=== PATIENT | female | born 1955 | race American Indian/Alaskan Native ===

== ENCOUNTER 2017-08-16 19:12 | Inpatient (IN) | payer MEDICARE, MEDICAID, OTHER ==
[2017-08-16 19:21] VITALS: BMI 33.6
[2017-08-16] MEDS ORDERED: Sodium Chloride 0.9% 1,000 ML IV SCH (19:45)
[2017-08-16] MEDS ORDERED: Morphine 4 mg/ml ISec IVP STA (19:45)
[2017-08-16] MEDS ORDERED: Iohexol 240 (50 ml) ONE (19:49)
[2017-08-16 20:42] LABS: BASO # 0.02 K/mm3 (0.0-2.0); BASO % 0.2 % (0.0-3.0); EOS # 0.2 (0.0-0.7); EOS % 2.2 % (1.5-5.0); GRAN # 3.82 (1.4-6.5); GRAN % 42.7 % (50.0-68.0); HEMOGLOBIN 10.2 g/dL (12.0-16.0); LYMPH # 4.3 (1.2-3.4); LYMPH % 48.3 % (22.0-35.0); MEAN CORPUSCULAR HEMOGLOBIN 29.6 pg (25.0-35.0); MEAN CORPUSCULAR HGB CONC 33.2 g/dl (31.0-37.0); MEAN PLATELET VOLUME 10.6 fl (7.0-11.0); MONO # 0.6 (0.1-0.6); MONO % 6.6 % (1.0-6.0); RBC 3.45 10^6/uL (3.5-6.1); RED CELL DISTRIBUTION WIDTH 13.9 % (11.5-14.5)
--- NOTE | 2017-08-16 20:52 | ED PDOC ---
Arrival/HPI - General Chief Complaint: Abdominal Pain Time Seen by Provider: 08/16/17 19:31 Historian: Patient - History of Present Illness Narrative History of Present Illness (Text): 08/16/17 19:35 Gala Johns is a 62 year old female, whose past medical history includes cholecystectomy 3 years ago, who presents to the emergency department complaining of redness and irritation to umbilical surgical scar that began 3 days ago. Patient states that her PMD diagnosed it as a UTI and was prescribed 3 days worth of ciprofloxacin. Patient cleaned it out with peroxide to little relief. No other complaints at this time. PMD: Dr. Teddy Pham Time/Duration: < week Symptom Onset: Gradual Symptom Course: Unchanged Activities at Onset: Light Context: Home Past Medical History - Provider Review Nursing Documentation Reviewed: Yes - Cardiac Hx Cardiac Disorders: Yes Hx Hypertension: Yes - Pulmonary Hx Respiratory Disorders: No - Neurological Hx Neurological Disorder: No - HEENT Hx HEENT Disorder: Yes Other/Comment: FLOATER IN RIGHT EYE AND TINNITIS - Renal Hx Renal Disorder: Yes (CYSTS ON KIDNEYS) Other/Comment: CYSTS ON KIDNEYS - Endocrine/Metabolic Hx Endocrine Disorders: No - Hematological/Oncological Hx Blood Disorders: Yes Other/Comment: PT. REPORTS NOTIFED SHE HAS HERPES WHEN SHE HAD A BLOOD TEST- NO OUTBREAKS REPORTED. - Integumentary Hx Dermatological Disorder: No - Musculoskeletal/Rheumatological Hx Musculoskeletal Disorders: Yes Hx Degenerative Joint Disease: Yes (BILATERAL KNEES) Hx Osteoarthritis: Yes Hx Rheumatoid Arthritis: Yes - Gastrointestinal Hx Gastrointestinal Disorders: Yes Hx Gall Bladder Disease: Yes (GALLBLADDER REMOVED 1998) Hx Hemorrhoids: Yes (RECENT INCREASED RECTAL BLEEDING) - Genitourinary/Gynecological Hx Genitourinary Disorders: Yes Other/Comment: CYSTS ON KIDNEYS - Psychiatric Hx Psychophysiologic Disorder: No Hx Depression: No Hx Emotional Abuse: No Hx Physical Abuse: No Hx Substance Use: No - Surgical History Hx Cholecystectomy: Yes - Anesthesia Hx Anesthesia: Yes Hx Anesthesia Reactions: No Hx Malignant Hyperthermia: No - Suicidal Assessment Feels Threatened In Home Enviroment: No Family/Social History - Physician Review Nursing Documentation Reviewed: Yes Family/Social History: No Known Family HX Smoking Status: Former Smoker Hx Alcohol Use: Yes (socially) Hx Substance Use: No Hx Substance Use Treatment: No Allergies/Home Meds Allergies/Adverse Reactions: Allergies No Known Allergies Allergy (Verified 03/26/18 19:21) Home Medications: Home Meds Medication Instructions Recorded Confirmed Valsartan [Diovan] 320 mg PO DAILY 08/11/13 08/16/17 Carvedilol [Coreg] 25 mg PO BID 08/16/17 08/16/17 Ciprofloxacin [Cipro] 500 mg PO BID 08/16/17 08/16/17 Oxycodone HCl [Roxicodone] 30 mg PO TID 08/16/17 08/16/17 Review of Systems - Physician Review All systems were reviewed & negative as marked: Yes - Review of Systems Constitutional: absent: Fevers, Night Sweats Eyes: absent: Vision Changes ENT: absent: Hearing Changes Respiratory: absent: SOB Cardiovascular: absent: Chest Pain Gastrointestinal: Abdominal Pain (irritation to umbilical scar) Genitourinary Female: absent: Dysuria, Frequency Musculoskeletal: absent: Arthralgias Skin: absent: Rash, Pruritis Neurological: absent: Headache, Dizziness Endocrine: absent: Diaphoresis Hemo/Lymphatic: absent: Adenopathy Psychiatric: absent: Anxiety, Depression Physical Exam Vital Signs Reviewed: Yes Vital Signs Temp Pulse Resp BP Pulse Ox 08/16/17 23:34 98.1 F 56 L 18 134/64 95 08/16/17 19:25 98.1 F 72 18 127/76 96 08/16/17 19:24 98.1 F 66 18 127/76 98 Temperature: Afebrile Blood Pressure: Normal Pulse: Regular Respiratory Rate: Normal Appearance: Positive for: Well-Appearing, Non-Toxic, Comfortable Pain Distress: None Mental Status: Positive for: Alert and Oriented X 3 - Systems Exam Head: Present: Atraumatic, Normocephalic Pupils: Present: PERRL Extroacular Muscles: Present: EOMI Conjunctiva: Present: Normal Mouth: Present: Moist Mucous Membranes Neck: Present: Normal Range of Motion Respiratory/Chest: Present: Clear to Auscultation, Good Air Exchange. No: Respiratory Distress, Accessory Muscle Use Cardiovascular: Present: Regular Rate and Rhythm, Normal S1, S2. No: Murmurs Abdomen: Present: Tenderness (to umbilicus) Back: Present: Normal Inspection Upper Extremity: Present: Normal Inspection. No: Cyanosis, Edema Lower Extremity: Present: Normal Inspection. No: Edema Neurological: Present: GCS=15, CN II-XII Intact, Speech Normal Skin: Present: Warm, Dry, Normal Color. No: Rashes Psychiatric: Present: Alert, Oriented x 3, Normal Insight, Normal Concentration Medical Decision Making ED Course and Treatment: 08/16/17 20:54 Impression: 62 year old female complaining of redness and irritation to umbilical surgical scar that began 3 days ago. Differential Diagnosis included but are not limited to: Plan: -- Abdomen and Pelvis CT with PO contrast -- Urinalysis -- Labs -- Toradol, Morphine, Zofran, and IV fluids -- Reassess and disposition Progress Notes: 08/16/2017 23:31 Abd/Pelvis CT FINDINGS: Limitations: Lack of intravenous contrast. Motion artifact - mild. Lower thorax: Multiple small cysts or bullae within lung bases. Minimal atelectasis/scarring. ABDOMEN: Liver: Small calcification. 0.8 x 1.1 x 1.0 cm peripherally calcified lesion within right lobe. Gallbladder and bile ducts: Cholecystectomy. Mild prominence of common bile duct. Pancreas: No ductal dilation. No mass. Spleen: No splenomegaly. Adrenals: No mass. Kidneys and ureters: 0.8 x 0.5 x 0.8 cm hyperdense lesion within RIGHT kidney, indeterminate by CT criteria. Few probable LEFT renal cysts, up to 6.8 cm in size. No renal calculi. No hydronephrosis. Stomach and bowel: No definite mural thickening. No obstruction. Appendix: Normal caliber. No inflammation. PELVIS: Bladder: Unremarkable. Reproductive: Coarse calcification within uterus, likely fibroid. Asymmetrically enlarged left ovary, 3.8 x 2.9 x 2.1 cm, versus exophytic uterine mass. ABDOMEN and PELVIS: Intraperitoneal space: No significant fluid collection. No free air. Bones/joints: Early degenerative disc disease of spine. Facet osteoarthrosis within lower lumbar spine. No acute fracture. Soft tissues: Soft tissue thickening along umbilicus. Poorly defined area of decreased attenuation along umbilicus, roughly 2.0 x 1.7 x 1.8 cm. Tiny umbilical hernia containing fat. Vasculature: Moderate atherosclerotic disease of aorta and iliac arteries. Ectasia of infrarenal aorta, up to 2.3 cm in diameter. Lymph nodes: No pathologically enlarged lymph nodes. IMPRESSION: 1. Probable cellulitis of umbilicus. Small phlegmon or early abscess not excluded. Clinical correlation is needed. 2. Enlarged left ovary vs exophytic fibroid. Recommend ultrasound. 3. Liver lesion, incompletely characterized. Recommend nonemergent MRI. 4. Kidney lesion, indeterminate. Recommend nonemergent ultrasound or MRI. 5. Incidental/non-acute findings are described above. Dictator: Al Romo MD - Lab Interpretations Lab Results: 08/16/17 20:30 08/16/17 20:30 Lab Results 08/16/17 23:02: Urine Color Yellow, Urine Appearance Clear, Urine pH 6.0, Ur Specific [place] 1.020, Urine Protein Negative, Urine Glucose (UA) Negative, Urine Ketones Negative, Urine Blood Negative, Urine Nitrate Negative, Urine Bilirubin Negative, Urine Urobilinogen 0.2, Ur Leukocyte Esterase Negative 08/16/17 20:30: Sodium 144, Potassium 4.6, Chloride 107, Carbon Dioxide 33, Anion Gap 9 L, BUN 20, Creatinine 1.0, Est GFR ( Amer) > 60, Est GFR (Non -Af Amer) 56, Random Glucose 103, Calcium 10.5, Total Bilirubin 0.1 L, AST 23, ALT 31, Alkaline Phosphatase 75, Total Protein 7.5, Albumin 4.1, Globulin 3.4, Albumin/Globulin Ratio 1.2, Lipase 67 08/16/17 20:30: PT 11.5, INR 1.00 08/16/17 20:30: WBC 9.0, RBC 3.45 L, Hgb 10.2 L, Hct 30.7 L, MCV 89.0, MCH 29.6 , MCHC 33.2, RDW 13.9, Plt Count 230, MPV 10.6, Gran % 42.7 L, Lymph % (Auto) 48.3 H, [place] % (Auto) 6.6 H, Eos % (Auto) 2.2, Baso % (Auto) 0.2, Gran # 3.82, Lymph # (Auto) 4.3 H, [place] # (Auto) 0.6, Eos # (Auto) 0.2, Baso # (Auto) 0.02 I have reviewed the lab results: Yes - RAD Interpretation Radiology Orders: 08/16/17 19:42 ABD & PELVIS PO CONTRAST ONLY [CT] Stat - Medication Orders Current Medication Orders: Sodium Chloride (Sodium Chloride 0.9%) 1,000 mls @ 100 mls/hr IV .Q10H HUNTER Last Admin: 08/16/17 20:20 Dose: 100 mls/hr eMAR Start Stop Document 08/16/17 20:20 OCS (Rec: 08/16/17 20:20 OCS [id number]) Intravenous Solution Start Date 08/16/17 Start Time 20:20 Vancomycin HCl (Vancomycin 1gm) 1 gm in 250 mls @ 167 mls/hr IVPB STAT STA PRN Reason: Protocol Stop: 08/17/17 01:16 Piperacillin Sod/Tazobactam Sod (Zosyn 3.375 In Ns 100ml) 100 mls @ 200 mls/hr IVPB STAT STA PRN Reason: Protocol Stop: 08/17/17 00:16 Discontinued Medications Ketorolac Tromethamine (Toradol) 15 mg IVP STAT STA Stop: 08/16/17 19:46 Last Admin: 08/16/17 20:19 Dose: 15 mg MAR Pain Assessment Document 08/16/17 20:19 OCS (Rec: 08/16/17 20:19 OCS [id number]) Pain Reassessment Is this a pain reassessment? No Sleep Is patient sleeping during reassessment? No Presence of Pain Presence of Pain Yes Pain Scale Used Pain Scale Used Numeric Location Upper or Lower Lower Pain Location Body Site Abdomen Description Description Constant Intensity of Pain at present 9 Aggravating Factors ADL's IVP Administration Document 08/16/17 20:19 OCS (Rec: 08/16/17 20:19 OCS [id number]) Charges for Administration # of IVP Administrations 1 Morphine Sulfate (Morphine) 4 mg IVP STAT STA Stop: 08/16/17 19:46 Last Admin: 08/16/17 20:19 Dose: 4 mg MAR Pain Assessment Document 08/16/17 20:19 OCS (Rec: 08/16/17 20:19 OCS [id number]) Pain Reassessment Is this a pain reassessment? No Sleep Is patient sleeping during reassessment? No Presence of Pain Presence of Pain Yes Pain Scale Used Pain Scale Used Numeric Location Upper or Lower Lower Pain Location Body Site Groin Description Description Constant Intensity of Pain at present 9 Aggravating Factors ADL's IVP Administration Document 08/16/17 20:19 OCS (Rec: 08/16/17 20:19 OCS [id number]) Charges for Administration # of IVP Administrations 1 Ondansetron HCl (Zofran Inj) 4 mg IVP STAT STA Stop: 08/16/17 19:46 Last Admin: 08/16/17 20:20 Dose: 4 mg IVP Administration Document 08/16/17 20:20 OCS (Rec: 08/16/17 20:20 OCS [id number]) Charges for Administration # of IVP Administrations 1 - PA / PERCOLATOR OPERATOR / Resident Statement MD/DO has reviewed & agrees with the documentation as recorded. - Scribe Statement The provider has reviewed the documentation as recorded by the Scribe Aubree Tam Provider Scribe Attestation: All medical record entries made by the Scribe were at my direction and personally dictated by me. I have reviewed the chart and agree that the record accurately reflects my personal performance of the history, physical exam, medical decision making, and the department course for this patient. I have also personally directed, reviewed, and agree with the discharge instructions and disposition. Disposition/Present on Arrival - Present on Arrival Any Indicators Present on Arrival: No History of DVT/PE: No History of Uncontrolled Diabetes: No Urinary Catheter: No History of Decub. Ulcer: No History Surgical Site Infection Following: None - Disposition Have Diagnosis and Disposition been Completed?: Yes Diagnosis: Cellulitis, abdominal wall Disposition: HOSPITALIZED Disposition Time: 00:09 Patient Plan: Admission Condition: GOOD Discharge Instructions (ExitCare): Cellulitis (ED) Referrals: Teddy Pham MD [Primary Care Provider] - Follow up with primary Forms: C[employer] Jian ([place] Citizen)
[2017-08-16 20:54] LABS: PROTHROMBIN TIME 11.5 SECONDS (9.4-12.5)
[2017-08-16 21:00] LABS: ALB/GLOB RATIO 1.2 (1.1-1.8); ALBUMIN 4.1 g/dL (3.0-4.8); ALT/SGPT 31 U/L (7-56); AST/SGOT 23 U/L (14-36); BLOOD UREA NITROGEN 20 mg/dL (7-21); CALCIUM 10.5 mg/dL (8.4-10.5); GFR AFRICAN-AMERICAN > 60; GFR NON-AFRICAN AMERICAN 56; LIPASE 67 U/L (23-300)
[2017-08-16 23:09] LABS: URINE APPEARANCE CLEAR (CLEAR); URINE BILIRUBIN NEGATIVE (NEGATIVE); URINE BLOOD NEGATIVE (NEGATIVE); URINE COLOR YELLOW (YELLOW); URINE GLUCOSE (UA) NEGATIVE (NEGATIVE); URINE LEUKOCYTE ESTERASE NEGATIVE Leu/uL (NEGATIVE); URINE PROTEIN NEGATIVE mg/dL (<30 mg/dL); URINE UROBILINOGEN 0.2 E.U./dL (<1 E.U./dL)
--- NOTE | 2017-08-16 23:31 | CT ---
EXAM: CT Abdomen and Pelvis With Intravenous Contrast CLINICAL HISTORY: 62 years old, female; Pain; Abdominal pain; Periumbilical; Prior surgery; Surgery date: 6+ months; Surgery type: HX cholecystectomy; Patient HX: HX bilateral kidney cysts, pt given po contrast omnipaque 240 50ml mixed with 33 oz of water; Additional info: Pain and tenderness to umbilicus TECHNIQUE: Axial computed tomography images of the abdomen and pelvis with intravenous contrast. All CT scans at this facility use one or more dose reduction techniques, viz.: automated exposure control; ma/kV adjustment per patient size (including targeted exams where dose is matched to indication; i.e. head); or iterative reconstruction technique. Coronal and sagittal reformatted images were created and reviewed. CONTRAST: 50 mL of OMNIPAQUE 240 administered intravenously. COMPARISON: No relevant prior studies available. FINDINGS: Limitations: Lack of intravenous contrast. Motion artifact - mild. Lower thorax: Multiple small cysts or bullae within lung bases. Minimal atelectasis/scarring. ABDOMEN: Liver: Small calcification. 0.8 x 1.1 x 1.0 cm peripherally calcified lesion within right lobe. Gallbladder and bile ducts: Cholecystectomy. Mild prominence of common bile duct. Pancreas: No ductal dilation. No mass. Spleen: No splenomegaly. Adrenals: No mass. Kidneys and ureters: 0.8 x 0.5 x 0.8 cm hyperdense lesion within RIGHT kidney, indeterminate by CT criteria. Few probable LEFT renal cysts, up to 6.8 cm in size. No renal calculi. No hydronephrosis. Stomach and bowel: No definite mural thickening. No obstruction. Appendix: Normal caliber. No inflammation. PELVIS: Bladder: Unremarkable. Reproductive: Coarse calcification within uterus, likely fibroid. Asymmetrically enlarged left ovary, 3.8 x 2.9 x 2.1 cm, versus exophytic uterine mass. ABDOMEN and PELVIS: Intraperitoneal space: No significant fluid collection. No free air. Bones/joints: Early degenerative disc disease of spine. Facet osteoarthrosis within lower lumbar spine. No acute fracture. Soft tissues: Soft tissue thickening along umbilicus. Poorly defined area of decreased attenuation along umbilicus, roughly 2.0 x 1.7 x 1.8 cm. Tiny umbilical hernia containing fat. Vasculature: Moderate atherosclerotic disease of aorta and iliac arteries. Ectasia of infrarenal aorta, up to 2.3 cm in diameter. Lymph nodes: No pathologically enlarged lymph nodes. IMPRESSION: 1. Probable cellulitis of umbilicus. Small phlegmon or early abscess not excluded. Clinical correlation is needed. 2. Enlarged left ovary vs exophytic fibroid. Recommend ultrasound. 3. Liver lesion, incompletely characterized. Recommend nonemergent MRI. 4. Kidney lesion, indeterminate. Recommend nonemergent ultrasound or MRI. 5. Incidental/non-acute findings are described above.
[2017-08-16] MEDS ORDERED: Piperacillin/Tazobact 3.375 gm 100 ML IVPB STA (23:47)
[2017-08-16] MEDS ORDERED: Vancomycin 1gm in NS 250ml 1 GM/250 ML BAG IVPB STA (23:47)
--- NOTE | 2017-08-17 00:59 | CP.PCM.HP ---
<Lucas Andrews - Last Filed: 08/17/17 00:52> History of Present Illness - History of Present Illness History of Present Illness: CC: Umbilical pain Pt is a 62 yo F with PMH of RA, HTN, and HLD presents to ED due to worsening pain of the umbilicus. Pt states she had a laparoscopic cholecystectomy in 1998 in which she formed keloid scars at the umbilicus and epigastric region. Pt states that over the past few years she has a recurring pain, erythema, and foul smell around umbilicus. Pt would clean the umbilicus with soap, water, and hydrogen peroxide. Pt states that her symptoms would generally resolve with this regimen. However, over the past 4 days burning/sore pain, erythema, and smell worsened with progressed even with her cleaning regimen. Pt states that the pain is interferring with her ADLs. Pt denied CP, SOB, n/v/d, fever, chills , ROSSI, or dizziness. Of note, patient was recently evaluated by her PMD for dysuria. Pt was prescribed 3 days of ciprofloxacin for UTI. Since completing antibiotics, patient denies any urinary symptoms. PMD: Teddy Pham PMH: RA, HTN, HLD Surg: laparoscopic cholecystectomy All: NKDA FHx: HTN, DM, CAD, CKD, breast CA SH: Former 1/2 ppd (quit 5 yrs ago), social EtOH use, denied illicit drug use Medications as per MAR Present on Admission - Present on Admission Any Indicators Present on Admission: No Review of Systems - Review of Systems Review of Systems: 12 point ROS reviewed and is negative other than what is stated in HPI. Past Patient History - Past Medical History & Family History Past Medical History?: Yes - Past Social History Smoking Status: Former Smoker - CARDIAC Hx Cardiac Disorders: Yes Hx Hypertension: Yes - PULMONARY Hx Respiratory Disorders: No - NEUROLOGICAL Hx Neurological Disorder: No - HEENT Hx HEENT Problems: Yes Other/Comment: FLOATER IN RIGHT EYE AND TINNITIS - RENAL Hx Chronic Kidney Disease: Yes (CYSTS ON KIDNEYS) Other/Comment: CYSTS ON KIDNEYS - ENDOCRINE/METABOLIC Hx Endocrine Disorders: No - HEMATOLOGICAL/ONCOLOGICAL Hx Blood Disorders: Yes Other/Comment: PT. REPORTS NOTIFED SHE HAS HERPES WHEN SHE HAD A BLOOD TEST- NO OUTBREAKS REPORTED. - INTEGUMENTARY Hx Dermatological Problems: No - MUSCULOSKELETAL/RHEUMATOLOGICAL Hx Musculoskeletal Disorders: Yes Hx Degenerative Joint Disease: Yes (BILATERAL KNEES) Hx Osteoarthritis: Yes Hx Rheumatoid Arthritis: Yes - GASTROINTESTINAL Hx Gastrointestinal Disorders: Yes Hx Gall Bladder Disease: Yes (GALLBLADDER REMOVED 1998) Hx Hemorrhoids: Yes (RECENT INCREASED RECTAL BLEEDING) - GENITOURINARY/GYNECOLOGICAL Hx Genitourinary Disorders: Yes Other/Comment: CYSTS ON KIDNEYS - PSYCHIATRIC Hx Psychophysiologic Disorder: No Hx Depression: No Hx Emotional Abuse: No Hx Physical Abuse: No Hx Substance Use: No - SURGICAL HISTORY Hx Cholecystectomy: Yes - ANESTHESIA Hx Anesthesia: Yes Hx Anesthesia Reactions: No Hx Malignant Hyperthermia: No Meds Allergies/Adverse Reactions: Allergies Allergy/AdvReac Type Severity Reaction Status Date / Time No Known Allergies Allergy Verified 08/16/17 19:21 Physical Exam - Constitutional Appears: No Acute Distress - Head Exam Head Exam: NORMAL INSPECTION - Eye Exam Eye Exam: Normal appearance - ENT Exam ENT Exam: Mucous Membranes Moist - Neck Exam Neck exam: Positive for: Normal Inspection - Respiratory Exam Respiratory Exam: Clear to Auscultation Bilateral. absent: Rales, Rhonchi, Wheezes - Cardiovascular Exam Cardiovascular Exam: RRR, +S1, +S2. absent: Diastolic murmur, Gallop, Rubs, Systolic Murmur - GI/Abdominal Exam GI & Abdominal Exam: Soft, Tenderness (umbilical). absent: Distended, Guarding , Rebound Additional comments: Keloid scars: linear/horizontal ~4 cm in epigastric region, round ~2 cm umbilicus Umbilicus TTP with surrounding erythema - Extremities Exam Extremities exam: Positive for: normal inspection - Back Exam Back exam: NORMAL INSPECTION - Neurological Exam Neurological exam: Alert, CN II-XII Intact, Oriented x3 - Psychiatric Exam Psychiatric exam: Normal Affect, Normal Mood - Skin Skin Exam: Dry, Intact, Normal Color, Warm Results - Vital Signs Recent Vital Signs: Last Vital Signs Temp 98.1 F 08/16/17 23:34 Pulse 56 L 08/16/17 23:34 Resp 18 08/16/17 23:34 BP 134/64 08/16/17 23:34 Pulse Ox 95 08/16/17 23:34 - Labs Result Diagrams: 08/16/17 20:30 08/16/17 20:30 Assessment & Plan - Assessment and Plan (Free Text) Assessment: 62 yo F with PMH of RA, HTN, and HLD admitted for cellulits of the umbilicus. Plan: 1. Umbilical Cellulitis - Afebrile, no leukocytosis - CT abd/pelvis showed probable cellulitis of the umbilicus - Vanc/Zosyn - IVF - ID consulted - F/u blood cultures 2. HTN - Valsartan/HCTZ - Coreg 3. HLD - Lipitor 4. RA - Oxycodone 5. Renal cyst/lesion - Incidental finding on CT: right hyperdense renal lesion and left renal cysts - Patient already aware of findings - Recommend outpatient evaluation and monitoring 6. Liver lesion - Incidental finding on CT: small calcification - Recommend outpatient evaluation and monitoring 7. Enlarged left ovary vs. exophytic fibroid - Incidentally found on CT - Recommend outpatient evaluation and monitoring GI/DVT PPx - Pepcid - SCDs Pt seen and discussed in detail with Dr. Davis. Diogeens Andrews, PGY1 <Jayy Davis - Last Filed: 08/17/17 02:10> Results - Vital Signs Recent Vital Signs: Last Vital Signs Temp 98.1 F 08/16/17 23:34 Pulse 56 L 08/16/17 23:34 Resp 18 08/16/17 23:34 BP 134/64 08/16/17 23:34 Pulse Ox 95 08/16/17 23:34 - Labs Result Diagrams: 08/16/17 20:30 08/16/17 20:30 Attending/Attestation - Attestation I have personally seen and examined this patient.: Yes I have fully participated in the care of the patient.: Yes I have reviewed all pertinent clinical information: Yes Notes (Text): 08/17/17 02:09 Patient was seen when she was in 365-. Agree with history, physical examination, assessment and plan.
[2017-08-17] MEDS: oxyCODONE 30 mg Immediate Release Tab PO PRN ×2 (05:39→20:27)
[2017-08-17] MEDS: Piperacillin/Tazobact 3.375 gm 100 ML IVPB SCH ×3 (05:42→23:40)
[2017-08-17] MEDS ORDERED: oxyCODONE 30 mg Immediate Release Tab PO SCH (10:00)
[2017-08-17 10:59] LABS: HEMOGLOBIN 9.7 g/dL (12.0-16.0); MEAN CELL VOLUME 89.2 fl (80.0-105.0); MEAN CORPUSCULAR HGB CONC 33.7 g/dl (31.0-37.0); MEAN PLATELET VOLUME 10.5 fl (7.0-11.0); RBC 3.23 10^6/uL (3.5-6.1); RED CELL DISTRIBUTION WIDTH 13.6 % (11.5-14.5); WHITE BLOOD COUNT 5.8 10^3/ul (4.5-11.0)
[2017-08-17 11:04] LABS: BLOOD UREA NITROGEN 18 mg/dL (7-21); CALCIUM 9.6 mg/dL (8.4-10.5); GFR AFRICAN-AMERICAN > 60; GFR NON-AFRICAN AMERICAN 56
--- NOTE | 2017-08-17 16:03 | CP.PCM.CON ---
History of Present Illness - History of Present Illness History of Present Illness: Surgery Consult Note: Dr Rondon Reason for consult: possible early umbilical abscess 62 year old female with PMH of RA, HTN, and HLD presents for worsening of her umbilical pain for past 4 days. Pt has an umbilical hernia and a keloid formation there since 1990, when pt had a lap robert. Over the past many years, pt had had recurring umbilical tenderness and a foul smell. Pt mostly uses a "q tip" to clean it up. However, 6 days, pt started having urinary discomfort and was found to have a UTI and finished 3 day course of Ciprofloxacin as per primary. Then pt started having worsening, constant umbilical pain, describes it as soreness, worse with bending forward, associated mild lower abdominal pain , denies discharge from umbilicus, fever, chills, nausea, vomiting, appetite changes, diarrhea, constipation. Last BM this AM. In ED, pt afebrile, vitals stable, no leukocytosis. CT abd pelvis showed probable umbilical cellulitis or early abscess. 12 point ROS obtained and neg, except as per HPI. PMD: Artemio Pham PMH: RA, HTN, HLD Surg: laparascopic cholecystectomy All: NKDA FHx: HTN, DM, CAD, CKD, breast CA SH: Former 1/2 ppd (quit 5 yrs ago), social EtOH use, denied illicit drug use Medications as per [facility] Review of Systems - Review of Systems All systems: reviewed and no additional remarkable complaints except Review of Systems: as per HPI Past Patient History - Past Medical History & Family History Past Medical History?: Yes - Past Social History Smoking Status: Former Smoker - CARDIAC Hx Cardiac Disorders: Yes Hx Hypertension: Yes - PULMONARY Hx Respiratory Disorders: No - NEUROLOGICAL Hx Neurological Disorder: No - HEENT Hx HEENT Problems: Yes Other/Comment: FLOATER IN RIGHT EYE AND TINNITIS - RENAL Hx Chronic Kidney Disease: Yes (CYSTS ON KIDNEYS) Other/Comment: CYSTS ON KIDNEYS - ENDOCRINE/METABOLIC Hx Endocrine Disorders: No - HEMATOLOGICAL/ONCOLOGICAL Hx Blood Disorders: Yes Other/Comment: PT. REPORTS NOTIFED SHE HAS HERPES WHEN SHE HAD A BLOOD TEST- NO OUTBREAKS REPORTED. - INTEGUMENTARY Hx Dermatological Problems: No - MUSCULOSKELETAL/RHEUMATOLOGICAL Hx Falls: No - GASTROINTESTINAL Hx Gastrointestinal Disorders: Yes Hx Gall Bladder Disease: Yes (GALLBLADDER REMOVED 1998) Hx Hemorrhoids: Yes (RECENT INCREASED RECTAL BLEEDING) - GENITOURINARY/GYNECOLOGICAL Hx Genitourinary Disorders: Yes Other/Comment: CYSTS ON KIDNEYS - PSYCHIATRIC Hx Psychophysiologic Disorder: No Hx Depression: No Hx Emotional Abuse: No Hx Physical Abuse: No Hx Substance Use: No - SURGICAL HISTORY Hx Cholecystectomy: Yes - ANESTHESIA Hx Anesthesia: Yes Hx Anesthesia Reactions: No Hx Malignant Hyperthermia: No Meds Allergies/Adverse Reactions: Allergies Allergy/AdvReac Type Severity Reaction Status Date / Time No Known Allergies Allergy Verified 08/16/17 19:21 - Medications Medications: Current Medications Atorvastatin Calcium (Lipitor) 10 mg PO DIN [facility] Carvedilol (Coreg) 25 mg PO BID [facility] Last Admin: 08/17/17 09:48 Dose: 25 mg Famotidine (Pepcid) 20 mg PO HS [facility] Heparin Sodium (Porcine) (Heparin) 5,000 units SC Q8 [facility] PRN Reason: Protocol Hydrochlorothiazide (Microzide) 12.5 mg PO DAILY [facility] Last Admin: 08/17/17 09:48 Dose: 12.5 mg Vancomycin HCl (Vancomycin 1gm) 1 gm in 250 mls @ 167 mls/hr IVPB Q12H [facility] PRN Reason: Protocol Oxycodone HCl (Oxycodone Immediate Release Tab) 30 mg PO TID PRN PRN Reason: Pain, moderate (4-7) Last Admin: 08/17/17 05:39 Dose: 30 mg Valsartan (Diovan) 320 mg PO DAILY [facility] Last Admin: 08/17/17 09:48 Dose: 320 mg Physical Exam - Constitutional Appears: Non-toxic, No Acute Distress - Head Exam Head Exam: ATRAUMATIC, NORMOCEPHALIC - Eye Exam Eye Exam: EOMI, PERRL. absent: Conjunctival injection, Scleral icterus Pupil Exam: PERRL - ENT Exam ENT Exam: Mucous Membranes Moist - Neck Exam Neck exam: Positive for: Full Rom - Respiratory Exam Respiratory Exam: Clear to Auscultation Bilateral, NORMAL BREATHING PATTERN. absent: Accessory Muscle Use, Rales, Rhonchi, Respiratory Distress - Cardiovascular Exam Cardiovascular Exam: RRR, +S1, +S2. absent: Systolic Murmur - GI/Abdominal Exam GI & Abdominal Exam: Normal Bowel Sounds, Soft, Tenderness (Mild TTP in umbilical/lower abdomen area.). absent: Organomegaly, Pulsatile Mass, Rebound, Rigid Additional comments: + keloid covering umbilical hernia, ttp. no discharge/odor appreciated. + keloid in epigastric area. - Extremities Exam Extremities exam: Positive for: normal inspection. Negative for: calf tenderness, pedal edema - Neurological Exam Neurological exam: Alert, Oriented x3 - Psychiatric Exam Psychiatric exam: Normal Affect, Normal Mood - Skin Skin Exam: Dry, Normal Color, Warm Results - Vital Signs Recent Vital Signs: Last Vital Signs Temp 98.2 F 08/17/17 08:14 Pulse 63 08/17/17 09:48 Resp 19 08/17/17 08:14 BP 127/73 08/17/17 09:48 Pulse Ox 98 08/17/17 08:14 - Labs Result Diagrams: 08/17/17 10:30 08/17/17 10:30 Labs: Laboratory Results - last 24 hr 08/17/17 08/17/17 10:30 10:30 WBC 5.8 D RBC 3.23 L Hgb 9.7 L Hct 28.8 L MCV 89.2 MCH 30.0 MCHC 33.7 RDW 13.6 Plt Count 204 MPV 10.5 ESR 60 H Sodium 143 Potassium 4.4 Chloride 108 H Carbon Dioxide 27 Anion Gap 13 BUN 18 Creatinine 1.0 Est GFR ( Amer) > 60 Est GFR (Non-Af Amer) 56 Random Glucose 134 H Calcium 9.6 Assessment & Plan - Assessment and Plan (Free Text) Assessment: 62 year old female with hx of laparascopic cholecystectomy, presents for umbilical cellulitis/abscess? - CT abd/pelvis showed probable cellulitis of the umbilicus - soft tissue thickening along umbilicus - poorly defined area of decreased attenuation along umbilicus - 2x1.7x1.8cm. tiny umbilical hernia containing fat. Small phlegmon or early abscess not excluded. enlarged left ovary vs exophytic fibroid. liver lesion. kidney lesion. - Cont with IV antibiotics per ID - Pain control - will discuss with attending - Date & Time Date: 08/17/17 Time: 16:03
[2017-08-17] MEDS: Vancomycin 1gm in NS 250ml 1 GM/250 ML BAG IVPB SCH (16:08)
[2017-08-18] MEDS: Vancomycin 1gm in NS 250ml 1 GM/250 ML BAG IVPB SCH ×3 (02:30→17:34)
[2017-08-18] MEDS: Piperacillin/Tazobact 3.375 gm 100 ML IVPB SCH ×3 (05:14→17:34)
[2017-08-18 06:46] LABS: HEMOGLOBIN 8.8 g/dL (12.0-16.0); MEAN CELL VOLUME 89.3 fl (80.0-105.0); MEAN CORPUSCULAR HEMOGLOBIN 29.4 pg (25.0-35.0); MEAN PLATELET VOLUME 10.7 fl (7.0-11.0); RBC 2.99 10^6/uL (3.5-6.1); RED CELL DISTRIBUTION WIDTH 13.9 % (11.5-14.5)
[2017-08-18 06:59] LABS: ALB/GLOB RATIO 1.2 (1.1-1.8); ALBUMIN 3.4 g/dL (3.0-4.8); ALT/SGPT 32 U/L (7-56); AST/SGOT 21 U/L (14-36); BLOOD UREA NITROGEN 16 mg/dL (7-21); GFR AFRICAN-AMERICAN > 60; GFR NON-AFRICAN AMERICAN 56
--- NOTE | 2017-08-18 07:50 | CON ---
DATE: 08/17/2017 LOCATION: The patient was seen earlier this morning in room 365, bed 1. CHIEF COMPLAINT: Abdominal pain times several days. HISTORY OF PRESENT ILLNESS: This is a 62-year-old female with past medical history significant for rheumatoid arthritis, hypertension, hyperlipidemia, history of lap cholecystectomy, and has had keloid from the umbilical site and infection at the site, now is admitted with an umbilical area discharge from a keloid that has been present. She states that she has been having chills, low-grade fevers. She did have nausea, but no vomiting. No diarrhea or constipation. PAST MEDICAL HISTORY: Significant for rheumatoid arthritis, hypertension, hyperlipidemia, breast cancer, coronary artery disease. PAST SURGICAL HISTORY: Significant for laparoscopic cholecystectomy. ALLERGIES: PATIENT HAS NO KNOWN ALLERGIES. MEDICATIONS AT HOME: Include valsartan, Zocor, oxycodone. PHYSICAL EXAMINATION VITAL SIGNS: The patient is in bed, in no acute distress with a temperature of 98, blood pressure is 123/60, respiratory rate of 18, heart rate of 63. HEENT: Unremarkable. NECK: Supple. LUNGS: Decreased breath sounds. HEART: Normal S1 and S2. ABDOMEN: Soft, nontender. Umbilical area with a keloid. There is tenderness although there is no discharge. LABORATORY EXAMINATION: Reveals a white count of 9,000, hemoglobin of 10, platelets of 230. Chemistry reveals BUN of 20, creatinine of 1.0. C-reactive protein is 10. Urinalysis is noted. Microbiology is not available. Blood cultures are pending. HIV has been ordered. The patient is on IV vancomycin. The patient had a CAT scan of the abdomen and pelvis. ASSESSMENT AND PLAN: This is a 62-year-old female with a history of keloids, rheumatoid arthritis, hypertension, hyperlipidemia, breast cancer, coronary artery disease, admitted now, since 1998, she had a laparoscopic cholecystectomy, which left her a keloid in the umbilical, now with an abdominal wall abscess and cellulitis. We will continue the vancomycin and Zosyn and surgical input. We will follow closely with you, clinical response and antibiotics. Micha Palacios MD
[2017-08-18 08:24] VITALS: RESP 19; O2SAT 96
[2017-08-18] MEDS: oxyCODONE 30 mg Immediate Release Tab PO PRN (09:42)
--- NOTE | 2017-08-18 12:32 | CP.PCM.PN ---
Subjective - Date & Time of Evaluation Date of Evaluation: 08/18/17 Time of Evaluation: 10:20 - Subjective Subjective: Patient seen and examined. No acute events over night. Purulent drainage expressed from umbilicus. Wound culture obtained. Iodoform packing placed. Objective - Vital Signs/Intake and Output Vital Signs (last 24 hours): Temp Pulse Resp BP Pulse Ox 98.6 F 66 19 128/68 96 08/18/17 06:00 08/18/17 09:20 08/18/17 06:00 08/18/17 09:20 08/18/17 06:00 Intake and Output: 08/18/17 08/18/17 06:59 18:59 Intake Total 1080 240 Balance 1080 240 - Medications Medications: Current Medications Atorvastatin Calcium (Lipitor) 10 mg PO DIN [facility] Last Admin: 08/17/17 17:37 Dose: 10 mg Carvedilol (Coreg) 25 mg PO BID [facility] Last Admin: 08/18/17 09:20 Dose: 25 mg Famotidine (Pepcid) 20 mg PO HS [facility] Last Admin: 08/17/17 22:42 Dose: 20 mg Heparin Sodium (Porcine) (Heparin) 5,000 units SC Q8 [facility] PRN Reason: Protocol Last Admin: 08/18/17 05:14 Dose: 5,000 units Hydrochlorothiazide (Microzide) 12.5 mg PO DAILY [facility] Last Admin: 08/18/17 09:21 Dose: 12.5 mg Piperacillin Sod/Tazobactam Sod (Zosyn 3.375 In Ns 100ml) 100 mls @ 200 mls/hr IVPB Q6 [facility] PRN Reason: Protocol Stop: 08/27/17 00:01 Last Admin: 08/18/17 12:02 Dose: 200 mls/hr Vancomycin HCl (Vancomycin 1gm) 1 gm in 250 mls @ 167 mls/hr IVPB Q12H [facility] PRN Reason: Protocol Last Admin: 08/18/17 05:55 Dose: 167 mls/hr Oxycodone HCl (Oxycodone Immediate Release Tab) 30 mg PO TID PRN PRN Reason: Pain, moderate (4-7) Last Admin: 08/18/17 09:42 Dose: 30 mg Valsartan (Diovan) 320 mg PO DAILY [facility] Last Admin: 08/18/17 09:21 Dose: 320 mg - Labs Labs: 03/28/18 06:30 08/18/17 06:30 PT 11.5 SECONDS (9.4-12.5) 08/16/17 20:30 INR 1.00 (0.93-1.08) 08/16/17 20:30 - Constitutional Appears: No Acute Distress - Head Exam Head Exam: NORMOCEPHALIC - Eye Exam Eye Exam: Normal appearance - ENT Exam ENT Exam: Mucous Membranes Moist - Respiratory Exam Respiratory Exam: NORMAL BREATHING PATTERN - Cardiovascular Exam Cardiovascular Exam: +S1, +S2 - GI/Abdominal Exam GI & Abdominal Exam: Soft - Neurological Exam Neurological Exam: Alert, Awake, Oriented x3 - Psychiatric Exam Psychiatric exam: Normal Mood - Skin Skin Exam: Dry, Intact, Warm Assessment and Plan - Assessment and Plan (Free Text) Assessment: 62F with umbilical abscess s/p I&D Plan: -C/w Abx -C/w local wound care management -Change iodoform packing daily -D/w Dr. Alcon Gunn PGY2
--- NOTE | 2017-08-18 15:43 | CP.PCM.PN ---
<Matt Johnson - Last Filed: 08/18/17 15:40> Subjective - Date & Time of Evaluation Date of Evaluation: 08/18/17 Time of Evaluation: 15:40 - Subjective Subjective: Medicine Progress Note: Patient seen and assessed at bedside. No acute events overnight. Patient endorses pain around her umbilicus but denies any other complaints including fever, chills, headache, chest pain, SOB, abdominal pain, N/V/D/C, urinary symptoms, or any numbness/tingling/weakness of any extremity. Objective - Vital Signs/Intake and Output Vital Signs (last 24 hours): Temp Pulse Resp BP Pulse Ox 98.6 F 66 19 128/68 96 08/18/17 06:00 08/18/17 09:20 08/18/17 06:00 08/18/17 09:20 08/18/17 06:00 Intake and Output: 08/18/17 08/18/17 06:59 18:59 Intake Total 1080 240 Balance 1080 240 - Medications Medications: Current Medications Atorvastatin Calcium (Lipitor) 10 mg PO DIN [facility] Last Admin: 08/17/17 17:37 Dose: 10 mg Carvedilol (Coreg) 25 mg PO BID [facility] Last Admin: 08/18/17 09:20 Dose: 25 mg Famotidine (Pepcid) 20 mg PO HS [facility] Last Admin: 08/17/17 22:42 Dose: 20 mg Heparin Sodium (Porcine) (Heparin) 5,000 units SC Q8 [facility] PRN Reason: Protocol Last Admin: 08/18/17 14:15 Dose: 5,000 units Hydrochlorothiazide (Microzide) 12.5 mg PO DAILY [facility] Last Admin: 08/18/17 09:21 Dose: 12.5 mg Piperacillin Sod/Tazobactam Sod (Zosyn 3.375 In Ns 100ml) 100 mls @ 200 mls/hr IVPB Q6 [facility] PRN Reason: Protocol Stop: 08/27/17 00:01 Last Admin: 08/18/17 12:02 Dose: 200 mls/hr Vancomycin HCl (Vancomycin 1gm) 1 gm in 250 mls @ 167 mls/hr IVPB Q12H [facility] PRN Reason: Protocol Last Admin: 08/18/17 05:55 Dose: 167 mls/hr Oxycodone HCl (Oxycodone Immediate Release Tab) 30 mg PO TID PRN PRN Reason: Pain, moderate (4-7) Last Admin: 08/18/17 09:42 Dose: 30 mg Valsartan (Diovan) 320 mg PO DAILY [facility] Last Admin: 08/18/17 09:21 Dose: 320 mg - Labs Labs: 08/18/17 06:30 08/18/17 06:30 PT 11.5 SECONDS (9.4-12.5) 08/16/17 20:30 INR 1.00 (0.93-1.08) 08/16/17 20:30 - Constitutional Appears: Non-toxic, No Acute Distress - Head Exam Head Exam: ATRAUMATIC, NORMOCEPHALIC - Eye Exam Eye Exam: EOMI, Normal appearance Pupil Exam: NORMAL ACCOMODATION, PERRL - ENT Exam ENT Exam: Mucous Membranes Moist, Normal Exam - Neck Exam Neck Exam: Full ROM, Normal Inspection. absent: Lymphadenopathy, Tenderness - Respiratory Exam Respiratory Exam: Clear to Ausculation Bilateral, NORMAL BREATHING PATTERN. absent: Accessory Muscle Use, Rales, Rhonchi, Wheezes - Cardiovascular Exam Cardiovascular Exam: REGULAR RHYTHM, RRR, +S1, +S2. absent: Bradycardia, Tachycardia, Murmur - GI/Abdominal Exam GI & Abdominal Exam: Soft, Tenderness (Umbilicus), Normal Bowel Sounds. absent : Distended, Firm, Guarding, Rigid, Rebound Additional comments: Umbilical wound dressing clean, dry and intact without surrounding erythema - Extremities Exam Extremities Exam: Full ROM, Normal Capillary Refill, Normal Inspection. absent : Calf Tenderness, Joint Swelling, Pedal Edema, Tenderness - Back Exam Back Exam: NORMAL INSPECTION. absent: CVA tenderness (L), CVA tenderness (R) - Neurological Exam Neurological Exam: Alert, Awake, CN II-XII Intact, Normal Gait, Oriented x3 - Psychiatric Exam Psychiatric exam: Normal Affect, Normal Mood - Skin Skin Exam: Dry, Warm Assessment and Plan - Assessment and Plan (Free Text) Assessment: 62 year old AA female with a past medical history significant for RA and HTN admitted for cellulits of the umbilicus. Plan: 1. Umbilical Cellulitis -CT Abdomen/Pelvis showed cellulitis of the umbilicus with underlying abscess not excluded -S/P bedside I&D -Blood cultures negative for 24 hours and Wound culture pending -Afebrile and without leukocytosis, tachycardia, tachypnea or lactic acidosis -Continue IV Vancomycin and Zosyn for empiric coverage -Continue home Oxycodone for pain control -ID and Surgery consulted, all recommendations appreciated 2. History of HTN -Continue home HCTZ, Coreg, and Diovan 3. History of HLD -Continue home Lipitor 4. History of RA -Continue home Oxycodone 5. Renal cyst/lesion -Incidental finding on CT: right hyperdense renal lesion and left renal cysts -Recommend outpatient evaluation and monitoring 6. Liver lesion -Incidental finding on CT: small calcification -Recommend outpatient evaluation and monitoring 7. Enlarged left ovary vs. Exophytic fibroid -Incidentally found on CT -Continue already scheduled [facility] appointment on 09/20/17 GI Prophylaxis: Pepcid DVT Prophylaxis: Heparin Patient seen and case discussed with attending, Dr. Ihsan Vazquez. <Ihsan Vazquez B - Last Filed: 08/18/17 16:40> Objective - Vital Signs/Intake and Output Vital Signs (last 24 hours): Temp Pulse Resp BP Pulse Ox 98.6 F 66 19 128/68 96 08/18/17 06:00 08/18/17 09:20 08/18/17 06:00 08/18/17 09:20 08/18/17 06:00 Intake and Output: 08/18/17 08/18/17 06:59 18:59 Intake Total 1080 240 Balance 1080 240 - Medications Medications: Current Medications Atorvastatin Calcium (Lipitor) 10 mg PO DIN [facility] Last Admin: 08/17/17 17:37 Dose: 10 mg Carvedilol (Coreg) 25 mg PO BID [facility] Last Admin: 08/18/17 09:20 Dose: 25 mg Famotidine (Pepcid) 20 mg PO HS [facility] Last Admin: 08/17/17 22:42 Dose: 20 mg Heparin Sodium (Porcine) (Heparin) 5,000 units SC Q8 [facility] PRN Reason: Protocol Last Admin: 08/18/17 14:15 Dose: 5,000 units Hydrochlorothiazide (Microzide) 12.5 mg PO DAILY [facility] Last Admin: 08/18/17 09:21 Dose: 12.5 mg Piperacillin Sod/Tazobactam Sod (Zosyn 3.375 In Ns 100ml) 100 mls @ 200 mls/hr IVPB Q6 [facility] PRN Reason: Protocol Stop: 08/27/17 00:01 Last Admin: 08/18/17 12:02 Dose: 200 mls/hr Vancomycin HCl (Vancomycin 1gm) 1 gm in 250 mls @ 167 mls/hr IVPB Q12H [facility] PRN Reason: Protocol Last Admin: 08/18/17 05:55 Dose: 167 mls/hr Oxycodone HCl (Oxycodone Immediate Release Tab) 30 mg PO TID PRN PRN Reason: Pain, moderate (4-7) Last Admin: 08/18/17 09:42 Dose: 30 mg Valsartan (Diovan) 320 mg PO DAILY [facility] Last Admin: 08/18/17 09:21 Dose: 320 mg - Labs Labs: 08/18/17 06:30 08/18/17 06:30 PT 11.5 SECONDS (9.4-12.5) 08/16/17 20:30 INR 1.00 (0.93-1.08) 08/16/17 20:30 Attending/Attestation - Attestation I have personally seen and examined this patient.: Yes I have fully participated in the care of the patient.: Yes I have reviewed all pertinent clinical information, including history, physical exam and plan: Yes Notes (Text): I have seen and examined the patient at bedside. Agree with the above note with the following additions/ exceptions: Briefly this is 62 year old female with history of RA and HTN who was admitted for umbilical cellulitis. She underwent bedside I&D by surgery. Wound culture pending. Blood culture negative so far. Continue vancomycin and zosyn. Continue oxycodone. Follow up with PMD for further work up regarding renal cyst and liver cyst. Follow up with obgyn. Upon discharge patient will follow up with Dr Pham. Dr Ihsan Vazquez
--- NOTE | 2017-08-18 20:53 | PN ---
DATE: 08/18/2017 SUBJECTIVE: Patient is in bed, in no acute distress. PHYSICAL EXAMINATION: VITAL SIGNS: Temperature is 98, blood pressure is 120/60, respiratory rate of 18. HEENT: Unremarkable. NECK: Supple. LUNGS: Have decreased breath sounds. HEART: Normal S1, S2. ABDOMEN: Soft, nontender. LABORATORY EXAMINATION: Reveals a white count of 7000, hemoglobin of 8, platelets of 187. BUN 16, creatinine of 1.0 and urinalysis is noted. Microbiology is noted. Blood cultures are negative. ASSESSMENT AND PLAN: A 62-year-old female with history of keloid, rheumatoid arthritis, hypertension, hyperlipidemia, breast cancer, coronary artery disease, and with abdominal wall abscess and cellulitis, on vancomycin and Zosyn. Patient's blood cultures are negative and culture from the wound is pending. We will check on the wound culture and make further recommendations. Micha Palacios MD
[2017-08-19] MEDS: Piperacillin/Tazobact 3.375 gm 100 ML IVPB SCH ×3 (00:10→12:53)
[2017-08-19] MEDS: Vancomycin 1gm in NS 250ml 1 GM/250 ML BAG IVPB SCH (05:50)
[2017-08-19 06:35] LABS: HEMOGLOBIN 9.5 g/dL (12.0-16.0); MEAN CELL VOLUME 89.1 fl (80.0-105.0); MEAN CORPUSCULAR HEMOGLOBIN 29.7 pg (25.0-35.0); MEAN CORPUSCULAR HGB CONC 33.3 g/dl (31.0-37.0); MEAN PLATELET VOLUME 10.6 fl (7.0-11.0); RBC 3.2 10^6/uL (3.5-6.1); RED CELL DISTRIBUTION WIDTH 13.7 % (11.5-14.5); WHITE BLOOD COUNT 8.4 10^3/ul (4.5-11.0)
[2017-08-19] MEDS: oxyCODONE 30 mg Immediate Release Tab PO PRN (06:58)
--- NOTE | 2017-08-19 07:07 | CP.PCM.PN ---
Subjective - Date & Time of Evaluation Date of Evaluation: 08/19/17 Time of Evaluation: 07:00 - Subjective Subjective: Patient seen and examined. Reports shortness of breath after infusion of IV Vancomycin. Infusion of IV Vanc stopped. Umbilicus still expressing some purulent material. Incision packed with iodoform. Denies headaches/dizziness, fever/chills. Objective - Vital Signs/Intake and Output Vital Signs (last 24 hours): Temp Pulse Resp BP Pulse Ox 98.7 F 68 20 122/54 L 96 08/18/17 16:00 08/18/17 17:32 08/18/17 16:00 08/18/17 17:32 08/18/17 16:00 Intake and Output: 08/19/17 08/19/17 06:59 18:59 Intake Total 1400 Output Total 300 Balance 1100 - Medications Medications: Current Medications Atorvastatin Calcium (Lipitor) 10 mg PO DIN [facility] Last Admin: 08/18/17 17:33 Dose: 10 mg Carvedilol (Coreg) 25 mg PO BID [facility] Last Admin: 08/18/17 17:32 Dose: 25 mg Famotidine (Pepcid) 20 mg PO HS [facility] Last Admin: 08/18/17 22:19 Dose: 20 mg Heparin Sodium (Porcine) (Heparin) 5,000 units SC Q8 [facility] PRN Reason: Protocol Last Admin: 08/19/17 05:50 Dose: 5,000 units Hydrochlorothiazide (Microzide) 12.5 mg PO DAILY [facility] Last Admin: 08/18/17 09:21 Dose: 12.5 mg Piperacillin Sod/Tazobactam Sod (Zosyn 3.375 In Ns 100ml) 100 mls @ 200 mls/hr IVPB Q6 [facility] PRN Reason: Protocol Stop: 08/27/17 00:01 Last Admin: 08/19/17 05:49 Dose: 200 mls/hr Oxycodone HCl (Oxycodone Immediate Release Tab) 30 mg PO TID PRN PRN Reason: Pain, moderate (4-7) Last Admin: 08/19/17 06:58 Dose: 30 mg Valsartan (Diovan) 320 mg PO DAILY [facility] Last Admin: 08/18/17 09:21 Dose: 320 mg - Labs Labs: 08/18/17 06:30 08/18/17 06:30 PT 11.5 SECONDS (9.4-12.5) 08/16/17 20:30 INR 1.00 (0.93-1.08) 08/16/17 20:30 - Constitutional Appears: No Acute Distress - Head Exam Head Exam: NORMOCEPHALIC - Eye Exam Eye Exam: EOMI, Normal appearance - ENT Exam ENT Exam: Mucous Membranes Moist - Respiratory Exam Respiratory Exam: NORMAL BREATHING PATTERN - Cardiovascular Exam Cardiovascular Exam: +S1, +S2 - GI/Abdominal Exam GI & Abdominal Exam: Soft. absent: Tenderness - Neurological Exam Neurological Exam: Alert, Awake, Oriented x3 - Psychiatric Exam Psychiatric exam: Normal Mood - Skin Skin Exam: Dry, Intact, Warm Assessment and Plan - Assessment and Plan (Free Text) Assessment: 62F with umbilical abscess s/p I&D Plan: -C/w Zosyn -Vanc discontinued -F/u ID recs for Abx -C/w local wound care management -Change iodoform packing daily -Further recs per Dr. Alcon Gunn PGY2
[2017-08-19 07:08] LABS: ALB/GLOB RATIO 1.2 (1.1-1.8); ALBUMIN 3.7 g/dL (3.0-4.8); ALT/SGPT 19 U/L (7-56); AST/SGOT 28 U/L (14-36); BLOOD UREA NITROGEN 17 mg/dL (7-21); CALCIUM 9.8 mg/dL (8.4-10.5); GFR AFRICAN-AMERICAN > 60; GFR NON-AFRICAN AMERICAN > 60
[2017-08-19 11:27] VITALS: BP 137/80; PULSE 64
[2017-08-19 11:31] VITALS: TEMP 98.5
--- NOTE | 2017-08-20 01:52 | PN ---
DATE: 08/19/2017 SUBJECTIVE: The patient is in bed, in no acute distress, nontoxic. PHYSICAL EXAMINATION: VITAL SIGNS: Temperature is 98, blood pressure is 130/80, respiratory rate of 18, heart rate of 64. HEENT: Unremarkable. NECK: Supple. LUNGS: Decreased breath sounds. HEART: Normal S1 and S2. ABDOMEN: Soft, nontender. LABORATORY DATA: Reveals the patient's white count of 8.4, hemoglobin of 9, platelets of 212. Sed rate is 60. BUN of 17, creatinine of 0.9. Urinalysis is noted. HIV is negative. Microbiology reveals blood cultures are negative. Umbilical cultures are negative. ASSESSMENT AND PLAN: This is a 62-year-old female who was seen earlier this morning in room 365, bed 1, history of keloid, rheumatoid arthritis, hypertension, hyperlipidemia, breast cancer, coronary artery disease, abdominal wall abscess, cellulitis. May be discharged on p.o. doxy and Augmentin as discussed with Dr. Vazquez. Micha Palacios MD
--- NOTE | 2017-08-22 11:32 | CP.PCM.DIS ---
<Matt Johnson - Last Filed: 08/22/17 11:24> Provider - Provider Date of Admission: 08/17/17 00:04 Attending physician: Ihsan Vazquez MD Primary care physician: Teddy Pham MD Consults: Surgery: Alcon ID: Travis Time Spent in preparation of Discharge (in minutes): 41 Diagnosis - Discharge Diagnosis (1) Cellulitis, abdominal wall Status: Acute Hospital Course - Lab Results Lab Results: Micro Results 08/17/17 00:45 Blood Blood Culture - Final NO GROWTH AFTER 5 DAYS 08/17/17 00:45 Blood Gram Stain - Final TEST NOT PERFORMED 08/17/17 00:15 Blood Blood Culture - Final NO GROWTH AFTER 5 DAYS 08/17/17 00:15 Blood Gram Stain - Final TEST NOT PERFORMED 08/18/17 12:20 Umbilicus Gram Stain - Final 08/18/17 12:20 Umbilicus Wound Culture - Final No Growth Most Recent Lab Values WBC 8.4 10^3/ul (4.5-11.0) 08/19/17 05:30 RBC 3.20 10^6/uL (3.5-6.1) L 08/19/17 05:30 Hgb 9.5 g/dL (12.0-16.0) L 08/19/17 05:30 Hct 28.5 % (36.0-48.0) L 08/19/17 05:30 MCV 89.1 fl (80.0-105.0) 08/19/17 05:30 MCH 29.7 pg (25.0-35.0) 08/19/17 05:30 MCHC 33.3 g/dl (31.0-37.0) 08/19/17 05:30 RDW 13.7 % (11.5-14.5) 08/19/17 05:30 Plt Count 212 10^3/uL (120.0-450.0) 08/19/17 05:30 MPV 10.6 fl (7.0-11.0) 08/19/17 05:30 Gran % 42.7 % (50.0-68.0) L 08/16/17 20:30 Lymph % (Auto) 48.3 % (22.0-35.0) H 08/16/17 20:30 [place] % (Auto) 6.6 % (1.0-6.0) H 08/16/17 20:30 Eos % (Auto) 2.2 % (1.5-5.0) 08/16/17 20:30 Baso % (Auto) 0.2 % (0.0-3.0) 08/16/17 20:30 Gran # 3.82 (1.4-6.5) 08/16/17 20:30 Lymph # (Auto) 4.3 (1.2-3.4) H 08/16/17 20:30 [place] # (Auto) 0.6 (0.1-0.6) 08/16/17 20:30 Eos # (Auto) 0.2 (0.0-0.7) 08/16/17 20:30 Baso # (Auto) 0.02 K/mm3 (0.0-2.0) 08/16/17 20:30 ESR 60 mm/hr (0.0-20.0) H 08/17/17 10:30 PT 11.5 SECONDS (9.4-12.5) 08/16/17 20:30 INR 1.00 (0.93-1.08) 08/16/17 20:30 Sodium 143 mmol/L (132-148) 08/19/17 05:30 Potassium 4.1 mmol/L (3.6-5.0) 08/19/17 05:30 Chloride 108 mmol/L (98-107) H 08/19/17 05:30 Carbon Dioxide 26 mmol/L (21-33) 08/19/17 05:30 Anion Gap 13 (10-20) 08/19/17 05:30 BUN 17 mg/dL (7-21) 08/19/17 05:30 Creatinine 0.9 mg/dl (0.7-1.2) 08/19/17 05:30 Est GFR ( Amer) > 60 08/19/17 05:30 Est GFR (Non-Af Amer) > 60 08/19/17 05:30 Random Glucose 93 mg/dL (70-110) 08/19/17 05:30 Calcium 9.8 mg/dL (8.4-10.5) 08/19/17 05:30 Phosphorus 4.2 mg/dL (2.5-4.5) 08/19/17 05:30 Magnesium 1.9 mg/dL (1.7-2.2) 08/19/17 05:30 Total Bilirubin 0.4 mg/dL (0.2-1.3) 08/19/17 05:30 AST 28 U/L (14-36) 08/19/17 05:30 ALT 19 U/L (7-56) 08/19/17 05:30 Alkaline Phosphatase 78 U/L (38-126) 08/19/17 05:30 C-Reactive Protein 10.00 mg/L (0.0-9.9) H 08/17/17 10:30 Total Protein 6.9 g/dL (5.8-8.3) 08/19/17 05:30 Albumin 3.7 g/dL (3.0-4.8) 08/19/17 05:30 Globulin 3.2 gm/dL 08/19/17 05:30 Albumin/Globulin Ratio 1.2 (1.1-1.8) 08/19/17 05:30 Lipase 67 U/L (23-300) 08/16/17 20:30 Urine Color Yellow (YELLOW) 08/16/17 23:02 Urine Appearance Clear (CLEAR) 08/16/17 23:02 Urine pH 6.0 (4.7-8.0) 08/16/17 23:02 Ur Specific [place] 1.020 (1.005-1.035) 08/16/17 23:02 Urine Protein Negative mg/dL (<30 mg/dL) 08/16/17 23:02 Urine Glucose (UA) Negative mg/dL (NEGATIVE) 08/16/17 23:02 Urine Ketones Negative mg/dL (NEGATIVE) 08/16/17 23:02 Urine Blood Negative (NEGATIVE) 08/16/17 23:02 Urine Nitrate Negative (NEGATIVE) 08/16/17 23:02 Urine Bilirubin Negative (NEGATIVE) 08/16/17 23:02 Urine Urobilinogen 0.2 E.U./dL (<1 E.U./dL) 08/16/17 23:02 Ur Leukocyte Esterase Negative Kirti/uL (NEGATIVE) 08/16/17 23:02 HIV 1&2 Ag/Ab, 4th Gen Nonreactive (Nonreactive) 08/18/17 06:30 - Hospital Course Hospital Course: 62 year old AA female with a past medical history significant for RA and HTN admitted for cellulits of the umbilicus. CT Abdomen/Pelvis showed cellulitis of the umbilicus with underlying abscess not excluded. IV Vancomycin and Zosyn for empiric coverage were started. ID and Surgery were consulted. Two bedside I&D's were done. Blood cultures and wound culture were negative. Afebrile and without leukocytosis, tachycardia, tachypnea or lactic acidosis throughout admission. Home Oxycodone, HCTZ, Coreg, Diovan and Lipitor were started. Patient was given instructions for wound care as well as full courses of PO Augmentin and Doxycycline and discharged home 08/19/17 with instructions written as below. Of note, patient had several non-significant incidental findings on CT abdomen/ pelvis that she was made aware of, most of which were already known to patient, and was advised to show the report to her PMD for appropriate outpatient follow- up and monitoring with verbal agreement by patient. - Date & Time of H&P Date of H&P: 08/17/17 Time of H&P: 00:52 Discharge Exam - Head Exam Head Exam: ATRAUMATIC, NORMOCEPHALIC - Eye Exam Eye Exam: EOMI, Normal appearance Pupil Exam: NORMAL ACCOMODATION, PERRL - ENT Exam ENT Exam: Mucous Membranes Moist, Normal Exam - Neck Exam Neck exam: Full Rom, Normal Inspection - Respiratory Exam Respiratory Exam: Clear to PA & Lateral, NORMAL BREATHING PATTERN, UNREMARKABLE - Cardiovascular Exam Cardiovascular Exam: REGULAR RHYTHM - GI/Abdominal Exam GI & Abdominal Exam: Normal Bowel Sounds, Soft. absent: Distended, Firm, Guarding, Mass, Rebound, Rigid, Tenderness, Unremarkable (Umbilical wound dressing clean, dry and intact) - Extremities Exam Extremities exam: full ROM, normal capillary refill, normal inspection, pedal pulses present - Back Exam Back exam: FULL ROM, NORMAL INSPECTION - Neurological Exam Neurological exam: Alert, CN II-XII Intact, Normal Gait, Oriented x3, Reflexes Normal - Psychiatric Exam Psychiatric exam: Normal Affect, Normal Mood - Skin Skin Exam: Dry, Intact, Normal Color, Warm Discharge Plan - Discharge Medications Prescriptions: Amoxicillin/Clavulanate [Augmentin 875 MG-125 MG] 1 tab PO BID #20 tab Doxycycline Hyclate 100 mg PO BID #20 capsule - Follow Up Plan Condition: GOOD Disposition: HOME/ ROUTINE Instructions: Wound Care (DC), Cellulitis (DC) Additional Instructions: Please follow up with your primary care doctor within one week for post hospitalization follow up Please take all medications as prescribed Wound Care as per Surgery Team: Clean wound daily with Betadine swabs Pack w/ Iodoform Cover w/ gauze pad and apply tape If your symptoms worsen or persist, please seek emergency medical attention Referrals: Teddy Pham MD [Primary Care Provider] - <Ihsan Vazquez - Last Filed: 08/22/17 14:44> Provider - Provider Date of Admission: 08/17/17 00:04 Attending physician: Ihsan Vazquez MD Primary care physician: Teddy Pham MD Hospital Course - Lab Results Lab Results: Micro Results 08/17/17 00:45 Blood Blood Culture - Final NO GROWTH AFTER 5 DAYS 08/17/17 00:45 Blood Gram Stain - Final TEST NOT PERFORMED 08/17/17 00:15 Blood Blood Culture - Final NO GROWTH AFTER 5 DAYS 08/17/17 00:15 Blood Gram Stain - Final TEST NOT PERFORMED 08/18/17 12:20 Umbilicus Gram Stain - Final 08/18/17 12:20 Umbilicus Wound Culture - Final No Growth Most Recent Lab Values WBC 8.4 10^3/ul (4.5-11.0) 08/19/17 05:30 RBC 3.20 10^6/uL (3.5-6.1) L 08/19/17 05:30 Hgb 9.5 g/dL (12.0-16.0) L 08/19/17 05:30 Hct 28.5 % (36.0-48.0) L 08/19/17 05:30 MCV 89.1 fl (80.0-105.0) 08/19/17 05:30 MCH 29.7 pg (25.0-35.0) 08/19/17 05:30 MCHC 33.3 g/dl (31.0-37.0) 08/19/17 05:30 RDW 13.7 % (11.5-14.5) 08/19/17 05:30 Plt Count 212 10^3/uL (120.0-450.0) 08/19/17 05:30 MPV 10.6 fl (7.0-11.0) 08/19/17 05:30 Gran % 42.7 % (50.0-68.0) L 08/16/17 20:30 Lymph % (Auto) 48.3 % (22.0-35.0) H 08/16/17 20:30 [place] % (Auto) 6.6 % (1.0-6.0) H 08/16/17 20:30 Eos % (Auto) 2.2 % (1.5-5.0) 08/16/17 20:30 Baso % (Auto) 0.2 % (0.0-3.0) 08/16/17 20:30 Gran # 3.82 (1.4-6.5) 08/16/17 20:30 Lymph # (Auto) 4.3 (1.2-3.4) H 08/16/17 20:30 [place] # (Auto) 0.6 (0.1-0.6) 08/16/17 20:30 Eos # (Auto) 0.2 (0.0-0.7) 08/16/17 20:30 Baso # (Auto) 0.02 K/mm3 (0.0-2.0) 08/16/17 20:30 ESR 60 mm/hr (0.0-20.0) H 08/17/17 10:30 PT 11.5 SECONDS (9.4-12.5) 08/16/17 20:30 INR 1.00 (0.93-1.08) 08/16/17 20:30 Sodium 143 mmol/L (132-148) 08/19/17 05:30 Potassium 4.1 mmol/L (3.6-5.0) 08/19/17 05:30 Chloride 108 mmol/L (98-107) H 08/19/17 05:30 Carbon Dioxide 26 mmol/L (21-33) 08/19/17 05:30 Anion Gap 13 (10-20) 08/19/17 05:30 BUN 17 mg/dL (7-21) 08/19/17 05:30 Creatinine 0.9 mg/dl (0.7-1.2) 08/19/17 05:30 Est GFR ( Amer) > 60 08/19/17 05:30 Est GFR (Non-Af Amer) > 60 08/19/17 05:30 Random Glucose 93 mg/dL (70-110) 08/19/17 05:30 Calcium 9.8 mg/dL (8.4-10.5) 08/19/17 05:30 Phosphorus 4.2 mg/dL (2.5-4.5) 08/19/17 05:30 Magnesium 1.9 mg/dL (1.7-2.2) 08/19/17 05:30 Total Bilirubin 0.4 mg/dL (0.2-1.3) 08/19/17 05:30 AST 28 U/L (14-36) 08/19/17 05:30 ALT 19 U/L (7-56) 08/19/17 05:30 Alkaline Phosphatase 78 U/L (38-126) 08/19/17 05:30 C-Reactive Protein 10.00 mg/L (0.0-9.9) H 08/17/17 10:30 Total Protein 6.9 g/dL (5.8-8.3) 08/19/17 05:30 Albumin 3.7 g/dL (3.0-4.8) 08/19/17 05:30 Globulin 3.2 gm/dL 08/19/17 05:30 Albumin/Globulin Ratio 1.2 (1.1-1.8) 08/19/17 05:30 Lipase 67 U/L (23-300) 08/16/17 20:30 Urine Color Yellow (YELLOW) 08/16/17 23:02 Urine Appearance Clear (CLEAR) 08/16/17 23:02 Urine pH 6.0 (4.7-8.0) 08/16/17 23:02 Ur Specific [place] 1.020 (1.005-1.035) 08/16/17 23:02 Urine Protein Negative mg/dL (<30 mg/dL) 08/16/17 23:02 Urine Glucose (UA) Negative mg/dL (NEGATIVE) 08/16/17 23:02 Urine Ketones Negative mg/dL (NEGATIVE) 08/16/17 23:02 Urine Blood Negative (NEGATIVE) 08/16/17 23:02 Urine Nitrate Negative (NEGATIVE) 08/16/17 23:02 Urine Bilirubin Negative (NEGATIVE) 08/16/17 23:02 Urine Urobilinogen 0.2 E.U./dL (<1 E.U./dL) 08/16/17 23:02 Ur Leukocyte Esterase Negative Kirti/uL (NEGATIVE) 08/16/17 23:02 HIV 1&2 Ag/Ab, 4th Gen Nonreactive (Nonreactive) 08/18/17 06:30 Attending/Attestation - Attestation I have personally seen and examined this patient.: Yes I have fully participated in the care of the patient.: Yes I have reviewed all pertinent clinical information, including history, physical exam and plan: Yes Notes (Text): I have seen and examined the patient at bedside. Agree with the above note with the following additions/ exceptions: Briefly this is 62 year old female with history of RA and HTN who was admitted for umbilical cellulitis. She underwent bedside I&D by surgery. Wound culture pending. Blood culture negative so far. Patient was given vancomycin and zosyn. Discussed with ID. Patient will go home on augmentin and doxy. Patient was advised by surgery team how to change the packing and dressing. Continue oxycodone. Follow up with PMD for further work up regarding renal cyst and liver cyst. Follow up with obgyn. Upon discharge patient will follow up with Dr Pham and Dr Isael Vazquez
== END 2017-08-19 15:37 | disposition home or self-care (01) | DRG 603 ==
LOC: ED 19:12 → ERH 08-17 00:04 → 3RNO 08-17 01:23
PROVIDERS: ADMIT Internal Medicine; ATTEND Hospitalist
PROC: 0W9F3ZZ Drainage of Abdominal Wall, Percutaneous Approach (ICD-10-PCS; principal; 2017-08-18)
DX: L03.316 Cellulitis of umbilicus (principal); L02.216 Cutaneous abscess of umbilicus; M06.9 Rheumatoid arthritis, unspecified; E78.5 Hyperlipidemia, unspecified; I10 Essential (primary) hypertension; I25.10 Atherosclerotic heart disease of native coronary artery without angina pectoris; L03.311 Cellulitis of abdominal wall; L91.0 Hypertrophic scar; B00.9 Herpesviral infection, unspecified; Z85.3 Personal history of malignant neoplasm of breast; Z90.49 Acquired absence of other specified parts of digestive tract; Z87.891 Personal history of nicotine dependence

== ENCOUNTER 2017-08-30 09:02 | Emergency (ER) | payer MEDICARE, MEDICAID, OTHER ==
[2017-08-30 09:03] VITALS: BMI 33.6
[2017-08-30 09:51] VITALS: RESP 18; TEMP 97.9
[2017-08-30] MEDS ORDERED: Sodium Chloride 0.9% 1,000 ML IV STA (10:01)
--- NOTE | 2017-08-30 10:04 | ED PDOC ---
Arrival/HPI - General Chief Complaint: Abdominal Pain Time Seen by Provider: 08/30/17 09:51 Historian: Patient - History of Present Illness Narrative History of Present Illness (Text): 08/30/17 10:00 62 year old female, whose PMH includes hypertension and RA, who presents to the emergency department complaining of withdrawal symptoms from Oxycodone medication prescribed by pain managment docotor for her RA. Patient reports she has been taking Oxycodone for 7 months and is now having symptoms of abdominal pain associated with nausea, vomiting, and diarrhea. Patient denies any shortness of breath, chest pain, headache, fever, or other complaints. Time/Duration: < week Symptom Onset: Gradual Symptom Course: Unchanged Context: Home Past Medical History - Provider Review Nursing Documentation Reviewed: Yes - Cardiac Hx Cardiac Disorders: Yes Hx Hypertension: Yes - Pulmonary Hx Respiratory Disorders: No - Neurological Hx Neurological Disorder: No - HEENT Hx HEENT Disorder: Yes Other/Comment: FLOATER IN RIGHT EYE AND TINNITUS - Renal Hx Renal Disorder: Yes (CYSTS ON KIDNEYS) Other/Comment: CYSTS ON KIDNEYS - Endocrine/Metabolic Hx Endocrine Disorders: No - Hematological/Oncological Hx Blood Disorders: Yes Other/Comment: PT. REPORTS NOTIFED SHE HAS HERPES WHEN SHE HAD A BLOOD TEST- NO OUTBREAKS REPORTED. - Integumentary Hx Dermatological Disorder: No - Musculoskeletal/Rheumatological Hx Falls: No - Gastrointestinal Hx Gastrointestinal Disorders: Yes Hx Gall Bladder Disease: Yes Hx Hemorrhoids: Yes - Genitourinary/Gynecological Hx Genitourinary Disorders: Yes Other/Comment: CYSTS ON KIDNEYS - Psychiatric Hx Psychophysiologic Disorder: No Hx Depression: No Hx Emotional Abuse: No Hx Physical Abuse: No Hx Substance Use: No - Surgical History Hx Cholecystectomy: Yes - Anesthesia Hx Anesthesia: Yes Hx Anesthesia Reactions: No Hx Malignant Hyperthermia: No - Suicidal Assessment Feels Threatened In Home Enviroment: No Family/Social History - Physician Review Nursing Documentation Reviewed: Yes Family/Social History: Unknown Family HX Smoking Status: Former Smoker Hx Alcohol Use: Yes (socially) Hx Substance Use: No Hx Substance Use Treatment: No Allergies/Home Meds Allergies/Adverse Reactions: Allergies No Known Allergies Allergy (Verified 08/30/17 09:41) Home Medications: Home Meds Medication Instructions Recorded Confirmed Carvedilol [Coreg] 25 mg PO BID 08/16/17 08/30/17 Simvastatin [Zocor] 20 mg PO DAILY 08/17/17 08/30/17 Valsartan/Hydrochlorothiazide 1 tab PO DAILY 08/17/17 08/30/17 [Valsartan-Hctz 320-12.5 mg Tab] Review of Systems - Review of Systems Constitutional: absent: Fevers ENT: absent: Sore Throat Respiratory: absent: SOB Cardiovascular: absent: Chest Pain Gastrointestinal: Abdominal Pain, Diarrhea, Nausea, Vomiting. absent: Hematochezia Genitourinary Female: absent: Frequency Musculoskeletal: absent: Back Pain Skin: absent: Rash Neurological: absent: Headache, Dizziness Endocrine: absent: Diaphoresis, Polyuria Hemo/Lymphatic: absent: Adenopathy Physical Exam Vital Signs Reviewed: Yes Vital Signs Temp Pulse Resp BP Pulse Ox 08/30/17 12:13 65 18 98 08/30/17 10:51 63 18 179/90 H 100 08/30/17 09:43 97.9 F 63 18 170/95 H 100 Temperature: Afebrile Blood Pressure: Hypertensive Pulse: Regular Respiratory Rate: Normal Appearance: Positive for: Well-Appearing, Non-Toxic, Comfortable Pain Distress: None Mental Status: Positive for: Alert and Oriented X 3 - Systems Exam Head: Present: Atraumatic, Normocephalic Pupils: Present: PERRL Extroacular Muscles: Present: EOMI Conjunctiva: Present: Normal Respiratory/Chest: Present: Clear to Auscultation, Good Air Exchange. No: Respiratory Distress, Accessory Muscle Use, Wheezes, Rales, Rhonchi Cardiovascular: Present: Regular Rate and Rhythm, Normal S1, S2. No: Murmurs Abdomen: Present: Tenderness (mild non-focal tenderness), Normal Bowel Sounds. No: Distention, Peritoneal Signs, Rebound, Guarding Neurological: Present: GCS=15, CN II-XII Intact, Speech Normal Skin: Present: Warm, Dry, Normal Color. No: Rashes Psychiatric: Present: Alert, Oriented x 3, Normal Insight, Normal Concentration Medical Decision Making ED Course and Treatment: 08/30/17 Impression: 62 year old female with mild non-focal tenderness on abdomen complaining of abdominal pain associated with nausea, vomiting, and diarrhea. suspect gastro vs gastrtis vs opiate w/d Plan: -- Protonix, Zofran, Toradol -- Labs -- Urinalysis -- Reassess and disposition Progress Notes: 08/30/17 14:28 pt with ho of recent i and d abscess, seen in er by resident assistant cna and cleared, with abd pain nausea, vomiting diarrhea. p tattribtues symptoms to oxy w/d. advised we will eval for gastritis gastroenteritis colitis- requested pt be imaged but pt refuses states she prefers to go home and see her pain managment doctor. 09/03/17 07:46 - Lab Interpretations Lab Results: 08/30/17 10:15 08/30/17 11:20 Lab Results 08/30/17 11:20: Sodium 146, Potassium 4.1, Chloride 108 H, Carbon Dioxide 22, Anion Gap 20, BUN 22 H, Creatinine 0.9, Est GFR ( Amer) > 60, Est GFR ( Non-Af Amer) > 60, Random Glucose 115 H, Calcium 11.5 H, Total Bilirubin 0.5, AST 21, ALT 26, Alkaline Phosphatase 98, Total Protein 8.8 H, Albumin 4.9 H, Globulin 3.9, Albumin/Globulin Ratio 1.2, Lipase 95 08/30/17 10:15: PT 12.9 H, INR 1.12 H, APTT 30.1 08/30/17 10:15: WBC 8.9, RBC 4.14, Hgb 12.7 D, Hct 36.2, MCV 87.4, MCH 30.7, MCHC 35.1, RDW 13.8, Plt Count 339, MPV 11.2 H, Gran % 68.4 H, Lymph % (Auto) 28.8, [place] % (Auto) 2.5, Eos % (Auto) 0.1 L, Baso % (Auto) 0.2, Gran # 6.06, Lymph # (Auto) 2.6, [place] # (Auto) 0.2, Eos # (Auto) 0.0, Baso # (Auto) 0.02 08/30/17 10:10: Urine Color Yellow, Urine Appearance Sl cloudy, Urine pH 6.5, Ur Specific [place] >= 1.030, Urine Protein 100 H, Urine Glucose (UA) Negative, Urine Ketones Negative, Urine Blood Trace-intact H, Urine Nitrate Negative, Urine Bilirubin Negative, Urine Urobilinogen 0.2, Ur Leukocyte Esterase Trace H , Urine RBC 2 - 5, Urine WBC 5 - 10, Ur Epithelial Cells 10 - 12, Amorphous Sediment Small, Urine Bacteria Many, Urine Other Uyeast I have reviewed the lab results: Yes - Medication Orders Current Medication Orders: Discontinued Medications Sodium Chloride (Sodium Chloride 0.9%) 1,000 mls @ 1,000 mls/hr IV .Q1H STA Stop: 08/30/17 11:00 Last Admin: 08/30/17 10:32 Dose: 1,000 mls/hr eMAR Start Stop Document 08/30/17 10:32 [email or web address] (Rec: 08/30/17 10:32 [facility]- [id number]) Intravenous Solution Start Date 08/30/17 Start Time 10:32 End Date 08/30/17 Ketorolac Tromethamine (Toradol) 30 mg IVP STAT STA Stop: 08/30/17 10:02 Last Admin: 08/30/17 10:32 Dose: 30 mg MAR Pain Assessment Document 08/30/17 10:32 [email or web address] (Rec: 08/30/17 10:33 [facility] EDATT) Pain Reassessment Is this a pain reassessment? No Sleep Is patient sleeping during reassessment? No Presence of Pain Presence of Pain Yes Pain Scale Used Pain Scale Used Numeric Location Pain Location Body Site Abdomen Description Description Constant Intensity of Pain at present 7 Pain Behavior Facial Grimacing Aggravating Factors Changing Position Alleviating Factors/Management Medication Techniques Alleviating Factors Medication IVP Administration Document 08/30/17 10:32 [email or web address] (Rec: 08/30/17 10:[address]- [id number]) Charges for Administration # of IVP Administrations 1 Ondansetron HCl (Zofran Inj) 4 mg IVP STAT STA Stop: 08/30/17 10:02 Last Admin: 08/30/17 10:33 Dose: 4 mg IVP Administration Document 08/30/17 10:33 [email or web address] (Rec: 08/30/17 10:33 [facility]- [id number]) Charges for Administration # of IVP Administrations 1 Pantoprazole Sodium (Protonix Inj) 40 mg IVP STAT STA Stop: 08/30/17 10:02 Last Admin: 08/30/17 10:33 Dose: 40 mg IVP Administration Document 08/30/17 10:33 [email or web address] (Rec: 08/30/17 10:33 [facility]- [id number]) Charges for Administration # of IVP Administrations 1 - Scribe Statement The provider has reviewed the documentation as recorded by the Toanibe Mireille Dee Provider Toanibe Attestation: All medical record entries made by the Scribe were at my direction and personally dictated by me. I have reviewed the chart and agree that the record accurately reflects my personal performance of the history, physical exam, medical decision making, and the department course for this patient. I have also personally directed, reviewed, and agree with the discharge instructions and disposition. Disposition/Present on Arrival - Present on Arrival Any Indicators Present on Arrival: No History of DVT/PE: No History of Uncontrolled Diabetes: No Urinary Catheter: No History of Decub. Ulcer: No History Surgical Site Infection Following: None - Disposition Have Diagnosis and Disposition been Completed?: Yes Diagnosis: Abdominal pain Disposition: HOME/ ROUTINE Disposition Time: 12:00 Condition: STABLE Discharge Instructions (ExitCare): Acute Abdomen (Belly Pain), Adult (DC), Nausea and Vomiting, Adult (DC) Additional Instructions: return to er with worsening symptoms or concern you are declining ct imaging your abdomen. you are able to return to er with worsening symptoms or concerns. Prescriptions: Ondansetron ODT [Zofran ODT] 4 mg PO Q8 PRN #20 odt PRN Reason: Nausea/Vomiting Referrals: [employer] [facility] [Outside] - [place] [facility] [place] - Follow up with primary Lucio Sinclair MD [Staff Provider] - Follow up with primary Forms: [employer] (Arabic)
[2017-08-30 10:24] LABS: BASO # 0.02 K/mm3 (0.0-2.0); BASO % 0.2 % (0.0-3.0); EOS % 0.1 % (1.5-5.0); GRAN # 6.06 (1.4-6.5); GRAN % 68.4 % (50.0-68.0); HEMOGLOBIN 12.7 g/dL (12.0-16.0); LYMPH # 2.6 (1.2-3.4); LYMPH % 28.8 % (22.0-35.0); MEAN CELL VOLUME 87.4 fl (80.0-105.0); MEAN CORPUSCULAR HEMOGLOBIN 30.7 pg (25.0-35.0); MEAN CORPUSCULAR HGB CONC 35.1 g/dl (31.0-37.0); MEAN PLATELET VOLUME 11.2 fl (7.0-11.0); MONO # 0.2 (0.1-0.6); MONO % 2.5 % (1.0-6.0); RBC 4.14 10^6/uL (3.5-6.1); RED CELL DISTRIBUTION WIDTH 13.8 % (11.5-14.5); WHITE BLOOD COUNT 8.9 10^3/ul (4.5-11.0)
[2017-08-30 10:34] LABS: INR 1.12 (0.93-1.08); PARTIAL THROMBOPLASTIN TIME 30.1 Seconds (25.1-36.5); PROTHROMBIN TIME 12.9 SECONDS (9.4-12.5)
[2017-08-30 11:01] VITALS: BP 179/90
[2017-08-30 11:07] LABS: PH,URINE 6.5 (4.7-8.0); URINE APPEARANCE SL CLOUDY (CLEAR); URINE BILIRUBIN NEGATIVE (NEGATIVE); URINE BLOOD TRACE-INTACT (NEGATIVE); URINE COLOR YELLOW (YELLOW); URINE GLUCOSE (UA) NEGATIVE (NEGATIVE); URINE LEUKOCYTE ESTERASE TRACE Leu/uL (NEGATIVE); URINE PROTEIN 100 mg/dL (<30 mg/dL); URINE UROBILINOGEN 0.2 E.U./dL (<1 E.U./dL)
[2017-08-30 11:13] LABS: URINE BACTERIA MANY (NEG)
[2017-08-30 11:14] LABS: URINE AMORPHOUS SEDIMENT SMALL
[2017-08-30 11:39] LABS: ALB/GLOB RATIO 1.2 (1.1-1.8); ALBUMIN 4.9 g/dL (3.0-4.8); ALT/SGPT 26 U/L (7-56); AST/SGOT 21 U/L (14-36); BLOOD UREA NITROGEN 22 mg/dL (7-21); CALCIUM 11.5 mg/dL (8.4-10.5); GFR AFRICAN-AMERICAN > 60; GFR NON-AFRICAN AMERICAN > 60; LIPASE 95 U/L (23-300)
[2017-08-30 12:14] VITALS: PULSE 65; O2SAT 98
== END 2017-08-30 12:14 | disposition home or self-care (01) ==
LOC: ED 09:02
DX: R10.9 Unspecified abdominal pain (principal); I10 Essential (primary) hypertension; M06.9 Rheumatoid arthritis, unspecified; Z87.891 Personal history of nicotine dependence
CPT/HCPCS: 80053; 81001; 83690; 85025; 85610; 85730; 96374; 96375; 99283; C9113; J1885; J2405; J7040